=== PATIENT | male | born 1990 ===

== ENCOUNTER 2021-03-21 19:08 | Outpatient (REF) | payer OTHER, SELFPAY ==
[2021-03-23 12:08] LABS: COVID-19 RT-PCR UVMMC Result Positive (Negative)
== END 2021-03-21 19:09 | disposition home or self-care (01) ==
LOC: NCHCN 19:08
PROVIDERS: Visit Provider Nurse Practitioner Family
DX: Z20.822 Contact with and (suspected) exposure to COVID-19 (principal)
CPT/HCPCS: U0003

== ENCOUNTER 2022-11-20 18:55 | Outpatient (REF) | payer OTHER, SELFPAY ==
[2022-11-20 18:23] LABS: HCT 47.2 % (40.0-50.0); HGB 16.7 g/dL (13.5-17.5); MCH 31.8 pg (27.0-33.0); MCHC 35.4 % (32.0-36.0); MCV 90 fL (80-95); MPV 9.4 fL (8.0-11.0); Platelet Count 220 10^3/uL (130-400); RBC 5.25 10^6/uL (4.36-5.78); RDW 11.9 % (11.8-14.1); RDW-SD 39.3 fL; WBC 4.13 10^3/uL (4.4-10.8)
[2022-11-20 18:32] LABS: Iron 129 ug/dL (65-175); Total Iron Binding Capacity 378 ug/dL (250-450); Transferrin Sat 34 % (20-55)
[2022-11-20 18:56] LABS: Vitamin D 25 Total 22.8 ng/mL (30-100)
[2022-11-20 19:51] LABS: ALT 29 U/L (16-63); AST 24 U/L (15-37); Albumin 4.7 g/dL (3.4-5.0); Alkaline Phosphatase 84 U/L (46-116); Anion Gap 8.5 mmol/L (3-11); BUN 15 mg/dL (7-18); Bilirubin, Total 0.8 mg/dL (0.2-1.0); CO2 30.5 mmol/L (21.0-32.0); Calcium 9.6 mg/dL (8.5-10.1); Chloride 99 mmol/L (98-107); Estimated GFR 101.92 (mL/min/1.73m2); Glucose 96 mg/dL (74-106); Potassium 4.8 mmol/L (3.5-5.1); Sodium 138 mmol/L (136-145); TSH (W/Ref FT4) 1.14 uIU/mL (0.36-3.74); Total Protein 7.7 g/dL (6.4-8.2); Vitamin B12 375 pg/mL (193-986)
[2022-11-26 10:55] LABS: Methylmalonic Acid 0.14 nmol/mL (<=0.40)
[2022-11-30 10:47] LABS: Testosterone, Free 16.9 ng/dL (4.85-19.0); Testosterone, Total 576 ng/dL (240-950)
== END 2022-11-20 18:56 | disposition home or self-care (01) ==
LOC: NCHCN 18:55
PROVIDERS: Visit Provider Family Medicine
DX: Z00.00 Encounter for general adult medical examination without abnormal findings (principal)
CPT/HCPCS: 80053; 80186; 82306; 84402; 84403; 85027; 82607; 83540; 83550; 84443